=== PATIENT | female | born 1935 | race Caucasian/White ===

== ENCOUNTER → 2019-05-04 | Outpatient (CLI) | payer MEDICARE, OTHER, MEDICAID ==
[~2019-05-04] MED LIST: AZIT250T PO; MECL-134 PO
== END | disposition home or self-care (01) ==
LOC: RADPV 10:48
PROVIDERS: ATTEND Internal Medicine Cardiovascular Disease
DX: I25.10 Atherosclerotic heart disease of native coronary artery without angina pectoris (principal); I08.1 Rheumatic disorders of both mitral and tricuspid valves
CPT/HCPCS: 93306